=== PATIENT | female | born 1955 | race Caucasian/White ===

== ENCOUNTER → 2018-04-21 | Outpatient (CLI) | payer OTHER ==
--- NOTE | 2018-04-21 12:54 | RAD ---
EXAM: Chest, 2 views. HISTORY: COPD. COMPARISON: None. FINDINGS: 2 views of the chest are obtained. There is no infiltrate, pleural effusion or pneumothorax. There is bilateral infrahilar atelectasis or scarring. There is hyperinflation due to respiratory effort or emphysema. IMPRESSION: 1. Hyperinflation due to inspiratory effort or emphysema. 2. Suspected bilateral infrahilar atelectasis or scarring. Electronically signed by: Chantell Reynolds MD (04/21/2018 12:51 PM) [place] [id number]
== END | disposition home or self-care (01) ==
LOC: RAD 11:51
PROVIDERS: ATTEND Internal Medicine
DX: J44.9 Chronic obstructive pulmonary disease, unspecified (principal)
CPT/HCPCS: 71046

== ENCOUNTER → 2018-05-03 | Outpatient (CLI) | payer OTHER ==
--- NOTE | 2018-05-03 10:47 | RAD ---
CT CHEST WO CONTRAST Indication: Chronic respiratory failure, COPD Technique: Noncontrast CT imaging was performed of the chest, multiplanar reconstruction images submitted. One or more of the following individualized dose reduction techniques were utilized for this examination: 1. Automated exposure control 2. Adjustment of the mA and/or kV according to patient size 3. Use of iterative reconstruction technique. Contrast: None Comparison: None Findings: There is prominence of epicardial fat on the left, adjacent mild atelectasis of the lingula of. Heart is enlarged. There is no pericardial effusion or pleural fluid. There is linear likely atelectasis left lower lobe near the base, very minimally on the right. There is minimal density in the tracheal lumen more eccentric to left with extent to the perla likely mucus. There is some coronary calcification. Thoracic aortic caliber is within normal limits. There is somewhat enlarged pretracheal node about 1.4 cm short axis dimension with adjacent focus of calcification. There is a calcified nodule of the right upper lobe. There is hepatic steatosis. There is multilevel thoracic spondylosis. IMPRESSION: 1. Heart is enlarged. There is some coronary calcification. 2. There is atelectasis bilaterally. Minimal density in the tracheal lumen extending to the perla is more likely due to mucus. 3. There is a nonspecific enlarged pretracheal node although adjacent calcification. There is also calcified granuloma right upper lobe. 4. There is hepatic steatosis. Electronically signed by: Afshin Marshall MD (05/03/2018 10:44 AM) [id number]
== END | disposition home or self-care (01) ==
LOC: CT 09:10
PROVIDERS: ATTEND Internal Medicine Pulmonary Disease
DX: J44.9 Chronic obstructive pulmonary disease, unspecified (principal); J98.11 Atelectasis; J84.10 Pulmonary fibrosis, unspecified; M47.894 Other spondylosis, thoracic region; I51.7 Cardiomegaly; I25.10 Atherosclerotic heart disease of native coronary artery without angina pectoris; K76.0 Fatty (change of) liver, not elsewhere classified
CPT/HCPCS: 71250